=== PATIENT | male | born 1980 | race Caucasian/White ===

== ENCOUNTER 2019-07-20 10:42 | Emergency (ER) | payer OTHER ==
[2019-07-20] MEDS ORDERED: Diphtheria,Pertussis(Acell),Tetanus Vaccine 0.5 ML SDV IM ONE (11:23)
--- NOTE | 2019-07-20 11:33 | EDM.PDOC ---
ED HPI GENERAL MEDICAL PROBLEM - General Chief Complaint: Laceration Stated Complaint: CUT L HAND Time Seen by Provider: 07/20/19 11:23 History Limitations: Reports: No Limitations - History of Present Illness INITIAL COMMENTS - FREE TEXT/NARRATIVE: Alert pleasant 39 year old male present due to cuts left hand and wrist due to musky he caught around 9:45 this am. Patient is right handed. Patient' s fingers are swelling therefore ring removed from fourth digit immediately up examination. Last tetanus shot was more than 5 years ago. Patient denies any additional injuries or concerns at this time. Allergies to sulfa medications noted per patient. - Related Data Allergies Allergy/AdvReac Type Severity Reaction Status Date / Time Sulfa (Sulfonamide Allergy Hives Verified 07/20/19 11:09 Antibiotics) Home Meds: Home Meds Cephalexin [Keflex] 500 mg PO QIDACANDBED 5 Days #20 capsule 07/20/19 [Rx] Past Medical History - Past Health History Medical/Surgical History: Denies Medical/Surgical History Social & Family History - Tobacco Use Smoking Status *Q: Never Smoker ED ROS GENERAL - Review of Systems Review Of Systems: ROS reveals no pertinent complaints other than HPI. ED EXAM, SKIN/RASH Exam: See Below Exam Limited By: No Limitations General Appearance: Alert, WD/WN, No Apparent Distress Eye Exam: Bilateral Eye: EOMI, PERRL Ears: Normal External Exam, Hearing Grossly Normal Nose: Normal Inspection, Normal Mucosa, No Blood Throat/Mouth: Normal Voice, No Airway Compromise Head: Normocephalic Neck: Normal Inspection, Supple, Non-Tender, Full Range of Motion ED SKIN PROCEDURES - Laceration/Wound Repair Left Lateral Wrist Appearance: Subcutaneous, Mildly Contaminated Distal NVT: Other (ULnar nerve injury) Anesthetic Type: Local Local Anesthesia - Lidocaine (Xylocaine): 1% Plain, 1% with EPI Local Anesthetic Volume: Other (2 cc Lido w/o then 3 cc w/Lido) Skin Prep: Chlorhexidine (Hibiciens), Saline Saline Irrigation (cc's): 500 Exploration/Debridement/Repair: Wound Explored, In a Bloodless Field, Explored to Base, Wound Margins Revised, Multiple Flaps Aligned Closed with: Sutures Lac/Wound length In cm: 4.2 Suture Size: 5-0 # of Sutures: 7 Suture Type: Nylon Sterile Dressing Applied: Provider Tetanus Status Addressed: Yes Complications: Yes Complication Description: 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 Ulnar artery preserved, Vein questionable. Left Lateral Hand Appearance: Subcutaneous Distal NVT: Neuro & Vascular Intact Anesthetic Type: Local Local Anesthesia - Lidocaine (Xylocaine): 1% Plain Local Anesthetic Volume: 3cc Skin Prep: Chlorhexidine (Hibiciens), Saline Saline Irrigation (cc's): 500 Exploration/Debridement/Repair: Wound Explored, In a Bloodless Field, Wound Margins Revised Closed with: Sutures Lac/Wound length In cm: 2.0 (second lac 1.5 cm) Suture Size: 5-0 # of Sutures: 6 (3 sutures in each wound) Suture Type: Nylon Drain Placement: No Sterile Dressing Applied: Nurse Tetanus Status Addressed: Yes Complications: No - Splinting Left Upper Extremity Splint Site: left ulnar gutter splint in intrinsic plus positioning Pre-Procedure NV Status: Normal Post-Procedure NV Status: Normal Splint Material: Fiberglass Splint Design: Other (ulnar gutter ) Applied & Form Fitted By: Nurse Provider Post-Splint Application NV Check: NV Status Normal Complications: No Course - Vital Signs Last Recorded V/S: Last Vital Signs Temp 36.4 C 07/20/19 11:13 Pulse 96 07/20/19 11:13 Resp 14 07/20/19 11:13 BP 116/70 07/20/19 11:13 Pulse Ox 98 07/20/19 11:13 - Orders/Labs/Meds Orders: Active Orders 24 hr Category Date Time Status Splinting [RC] ASDIRECTED Care 07/20/19 12:44 Active Vaccines to be Administered [RC] PER UNIT ROUTINE Care 07/20/19 11:23 Active cephALEXin [Keflex] Med 07/20/19 13:33 Once 500 mg PO ONETIME ONE Meds: Medications Discontinued Medications Generic Name Dose Route Start Last Admin Trade Name Freq PRN Reason Stop Dose Admin Diphtheria/Tetanus/Acell Pertussis 0.5 ml 07/20/19 11:23 07/20/19 11:32 Adacel IM 07/20/19 11:24 0.5 ml .ONCE ONE Administration Lidocaine HCl 5 ml 07/20/19 11:23 07/20/19 11:32 Xylocaine-Mpf 1% INJECT 07/20/19 11:24 5 ml ONETIME ONE Administration - Re-Assessments/Exams Free Text/Narrative Re-Assessment/Exam: wound sutured and sterile dressing with splinted applied by nursing staff. Called [facility] to speak to hand surgeon for close follow-up this week due to Ulnar nerve injury involvement. Called transfer call lost. 07/20/19 12:40 Attempted to contact hand surgeon at [facility] called [facility] Direct Line: 07/20/19 12:47 Return phone call from DR Jarvis [employer] Hand Surgeon regarding close follow-up for possible Ulnar nerve injury due to musky fish laceration. Oral antibiotic, UpTO Date reviewed and Keflex 500mg QID recommneded, and Splinting. Call [facility] at 8 am Sunday morning for an appointment Sunday or Sunday with Dr Jarvis. Clinic location [address] [place] [address] Present to [facility] ER at 7am Sunday or Sunday if increased pain noted and not control with normal amounts of ibuprofen and Tylenol. Fever is a lat sign of bad infection. 07/20/19 13:34 Departure - Departure Time of Disposition: 13:38 Disposition: Home, Self-Care 01 Condition: Good Clinical Impression: Laceration, Ulnar nerve damage, Tetanus toxoid vaccination administered at current visit - Discharge Information Prescriptions: Cephalexin [Keflex] 500 mg PO QIDACANDBED 5 Days #20 capsule Instructions: VIS, Tetanus, Diphtheria (Td); Tetanus, Diphtheria, Pertussis ( Tdap) - CDC, Laceration Care, Adult, [id number], Pain Medicine Instructions, [id number], Ulnar Nerve Contusion Referrals: PCP,None [Primary Care Provider] - 2 Days ( Specialty clinic [facility] Dr Jarvis Oral antibiotic, UpTO Date reviewed and Keflex 500mg QID recommneded, and Splinting. Call [facility] [place] at 8 am Sunday morning for an appointment Sunday or Sunday with Dr Jarvis. Clinic location [address] [place] [address] Present to [facility] ER at 7am Sunday or Sunday if increased pain noted and not control with normal amounts of ibuprofen and Tylenol. Fever is a lat sign of bad infection. ) Forms: ED Department Discharge Additional Instructions: 1. Leave splint in place. 2. Keflex 500mg QID x 5 days for infection prevention. 3. Ibuprofen 600-800mg every 6-8p hours as needed for swelling, fever and pain. 4. Tylenol 500-1000mg every 6-8hrs as needed for mild pain and fever 5. Call [facility] at 8 am Sunday morning for an appointment Sunday or Sunday with Dr Jarvis. Clinic location [address] [place] [address] Present to [facility] at 7am Sunday or Sunday if increased pain noted and not control with normal amounts of ibuprofen and Tylenol. Fever is a late sign of bad infection. - Problem List & Annotations (1) Tetanus toxoid vaccination administered at current visit SNOMED Code(s): 126046681, 960763255 Code(s): Z23 - ENCOUNTER FOR IMMUNIZATION Status: Acute Current Visit: Yes (2) Laceration SNOMED Code(s): 094856518 Code(s): [id number] - Status: Acute Current Visit: Yes (3) Ulnar nerve damage SNOMED Code(s): 41615179 Code(s): S54.00XA - INJURY OF ULNAR NERVE AT FOREARM LEVEL, UNSP ARM, INIT Status: Acute Current Visit: Yes - My Orders Last 24 Hours: My Active Orders 07/20/19 11:23 Vaccines to be Administered [RC] PER UNIT ROUTINE 07/20/19 12:44 Splinting [RC] ASDIRECTED 07/20/19 13:33 cephALEXin [Keflex] 500 mg PO ONETIME ONE - Assessment/Plan Last 24 Hours: My Active Orders 07/20/19 11:23 Vaccines to be Administered [RC] PER UNIT ROUTINE 07/20/19 12:44 Splinting [RC] ASDIRECTED 07/20/19 13:33 cephALEXin [Keflex] 500 mg PO ONETIME ONE
[2019-07-20] MEDS ORDERED: Cephalexin 250 MG Cap PO ONE (13:33)
== END 2019-07-20 14:02 | disposition home or self-care (01) ==
LOC: JP.ED 10:42
DX: S54.12XA Injury of median nerve at forearm level, left arm, initial encounter (principal); S61.512A Laceration without foreign body of left wrist, initial encounter; Z23 Encounter for immunization; Z88.2 Allergy status to sulfonamides; W26.9XXA Contact with unspecified sharp object(s), initial encounter
CPT/HCPCS: 12002; 29125; 90471; 90715; 99282; A9270; J2001